=== PATIENT | female | born 1955 | race Caucasian/White ===

== ENCOUNTER 2018-11-16 09:52 | Observation (INO) | payer MEDICAID ==
--- NOTE | 2018-11-16 10:38 | Emergency Department Record ---
History of Present Illness - General Chief complaint: Weakness Stated complaint: MUSCLE WEAKNESS,HEAD & MOUTH SORES Time Seen by Provider: 11/16/18 10:17 Source: Patient Mode of Arrival: Ambulatory Limitations: No limitations - History of Present Illness Initial comments: The patient is here due to not feeling well for 6 months. She has had intermittent scalp and mouth ulcers, fleeting pain in her hands and feet and a 30 lb weight gain. She denies any RUIZ, CP, SOB, AP, nausea, vomiting, or fevers. The patient has seen her PCP multiple times for it and was told it was stress. She also has seen her Dentist for it who is concerned. The patient does have an appointment with a Asset Card Clerk this week. Today what brought the patient here was worsening R scapula area pain that started this AM. She denies any cough or SOB with it and it seems to be worse with bending and twisting. MD Complaint: Generalized weakness Onset/Timin -: Month(s) - Related Data Home Medications Medication Instructions Recorded Confirmed Last Taken No Home Med [NO HOME MEDS] 11/16/18 11/16/18 Unknown Allergies Allergy/AdvReac Type Severity Reaction Status Date / Time Penicillins AdvReac NAUSEA Verified 11/16/18 10:04 Travel Screening - Travel/Exposure Within Last 30 Days Have you traveled within the last 30 days?: No Review of Systems Constitutional: Reports: Malaise. Denies: Chills, Fever Eyes: Denies: Eye discharge ENT: Denies: Congestion Respiratory: Denies: Cough, Dyspnea Cardiovascular: Denies: Arrhythmia, Chest pain Endocrine: Reports: Fatigue Gastrointestinal: Denies: Nausea Genitourinary: Denies: Dysuria Musculoskeletal: Denies: Arthralgia Skin: Denies: Bruising Past Medical History - SOCIAL HISTORY Smoking Status: Former smoker Alcohol Use: None Drug Use: None - RESPIRATORY Hx Respiratory Disorders: No - CARDIOVASCULAR Hx Cardio Disorders: No - NEURO Hx Neuro Disorders: No - GI Hx GI Disorders: No - Hx Genitourinary Disorders: No - ENDOCRINE Hx Endocrine Disorders: No - MUSCULOSKELETAL Hx Musculoskeletal Disorders: No - PSYCH Hx Psych Problems: No - HEMATOLOGY/ONCOLOGY Hx Hematology/Oncology Disorders: Yes Hx Cancer: Yes (Breast) Hx Chemotherapy: Yes (2009) Hx Radiation Therapy: Yes (2009) Family Medical History Any Significant Family History?: Yes Hx Cancer: Father *Cancer Comment: Father-Lung Hx Diabetes: Grandparents Physical Exam - General General Appearance: Alert, Oriented x3, Cooperative, No acute distress - Head Head exam: Atraumatic, Normocephalic, Normal inspection - Eye Eye exam: Normal appearance, PERRL, EOMI - ENT Throat exam: negative: Normal inspection (There are superficial ulcers on her soft palate) - Neck Neck exam: Normal inspection, Full ROM. negative: Lymphadenopathy, Meningismus , Tenderness - Respiratory Respiratory exam: Normal lung sounds bilaterally. negative: Respiratory distress - Cardiovascular Cardiovascular Exam: Regular rate, Normal rhythm, Normal heart sounds - GI/Abdominal GI/Abdominal exam: Soft, Normal bowel sounds. negative: Tenderness - Extremities Extremities exam: Normal inspection, Full ROM, Normal capillary refill, Other ( DP pulses 2+ bilaterally.). negative: Tenderness - Back Back exam: Reports: Normal inspection, Paraspinal tenderness (There is R Rhomboid tenderness to palpation.) - Neurological Neurological exam: Alert, Normal gait, Oriented X3. negative: Abnormal gait, Altered, Motor sensory deficit Course Vital Signs 11/16/18 10:01 Temperature 98.5 F Pulse Rate 94 H Respiratory 20 Rate Blood Pressure 131/74 Pulse Ox 96 - Reevaluation(s) Reevaluation #1: The patient is doing very well at this time but is still having the reproducible scapula pain. I did discuss the nonspecific ST changes on the EKG and the elevatedd CK-MB with the normal Trop. Because of her constellation of symptoms I did recommend a short stay admission for repeat lab testing and a cardiac echo tomorrow with a Cardiology consult. The patient did agree to the plan. I then did discuss the case with Mary (CUSTOMER SUCCESS DIRECTOR) who does accept the admission for Dr. Phillips. 11/16/18 12:00 Medical Decision Making - Data Complexity MDM Data: Labs Ordered and/or Reviewed, X-Ray Ordered and/or Reviewed, EKG Ordered and/or Reviewed - Lab Data Result diagrams: 11/16/18 10:35 11/16/18 10:35 - EKG Data -: EKG Interpreted by Me (NSR at 81, nonspecific ST changes inferior and lateral. Etiology ?.) - Radiology Data Radiology results: Report reviewed (CXR: Neg.) Disposition Disposition: Admit Clinical Impression: Chest pain, atypical Disposition: Still a Patient at [facility] Decision to Admit: Admit from ER Decision to Admit Date: 11/16/18 Decision to Admit Time: 12:03 Accepting Physician: Jaqcueline Time Discussed w/Accepting Physician: 12:03 Condition: (2) Stable Forms: Patient Portal Access Time of Disposition: 12:03 Quality - Quality Measures Quality Measures: N/A - Blood Pressure Screening View Details: Yes Does Patient Have Any of the Following: No Blood Pressure Classification: Pre-Hypertensive BP Reading Systolic Measurement: 131 Diastolic Measurement: 74 Screening for High Blood Pressure: < Pre-Hypertensive BP, F/U Documented > [ [id number]] Pre-Hypertensive Follow-up Interventions: Referral to alternative/primary care provider.
[2018-11-16 10:42] LABS: HEMATOCRIT 40.6 % (35.0-47.0); HEMOGLOBIN 13.2 gm/dl (11.6-16.0); MEAN CELL VOLUME 93.5 fl (81-97); MEAN CORPUSCULAR HEMOGLOBIN 30.4 pg (27-33); MEAN CORPUSCULAR HGB CONC 32.5 g/dl (32-36); MEAN PLATELET VOLUME 9.4 fl (7.4-10.4); PLATELET COUNT 293 K/uL (130-400); RED BLOOD COUNT 4.34 M/uL (3.80-5.40); RED CELL DISTRIBUTION WIDTH 13.8 % (11.5-14.5)
[2018-11-16 10:54] LABS: BLOOD UREA NITROGEN 14 mg/dL (8-23); CREATININE 0.7 mg/dL (0.5-0.9); EST GLOMERULAR FILTRATION RATE > 60 mL/min
[2018-11-16 10:55] LABS: TOTAL PROTEIN 7.2 g/dL (6.6-8.7)
[2018-11-16 10:57] LABS: GLUCOSE,RANDOM 97 mg/dL (74-109)
[2018-11-16 10:59] LABS: ALT/SGPT 18 U/L (<33); AST/SGOT 24 U/L (10.0-35.0)
[2018-11-16 11:00] LABS: ALB/GLOB RATIO 1.4 (1.1-1.8); ALBUMIN 4.2 g/dL (4.0-5.0); ALKALINE PHOSPHATASE 98 U/L (45-87); PLATELET ESTIMATE NORMAL (NORMAL)
[2018-11-16 11:07] LABS: CREATINE PHOSPHOKINASE 116 U/L (26-192)
[2018-11-16 11:08] LABS: CKMB 6.3 ng/mL (<3.77)
[2018-11-16 11:16] LABS: ERYTHROCYTE SEDIMENTATION RATE 30 mm/hr (0-30)
[2018-11-16] MEDS ORDERED: ACETAMINOPHEN 325 MG TAB PO ONE (11:50)
[2018-11-16] MEDS ORDERED: KETOROLAC 30 MG/ML VIAL IVP ONE (11:50)
[2018-11-16] MEDS ORDERED: MAGNESIUM HYDROXIDE/AL HYDROX 30 ML, LIDOCAINE VISC 2% 15ML 15 ML PO ONE ×2 (12:17)
[2018-11-16] MEDS ORDERED: ACETAMINOPHEN 325 MG TAB PO PRN (12:54)
[2018-11-16] MEDS ORDERED: KETOROLAC 30 MG/ML VIAL IVP PRN (12:54)
--- NOTE | 2018-11-16 14:48 | History & Physical ---
History of Present Illness - Date of Service Date of Service for History & Physical: 11/17/18 - History of Present Illness Admitting Diagnosis: 1. Atypical chest pain History of Present Illness: 62 yo female admitted for right shoulder pain x 1 day(reproducible with movement ) , transient rash on head and torso x 6 months (has derm appt 11/17/18, 1pm), and oral lesions that have been assessed by her dentist (instructed to see oral surgeon for biopsy). PMH smoker (recently quit a few months ago). PCP dx rash as "anxious respons" and recommended pt start restrictive diet and see derm. 11/16/18 - Pt presented to ER with her and daughter for right shoulder pain x 1 day and other chronic issues that have not been aggressively addressed in the outpt setting. EKG was read as having ST depression changes, trop <0.010 but elevated CKMB 6.3 , CK 116 CXR negative WBC 7, Hgb 13.2, Hct 40.6, Plt 293 Na 139, K 4.1, Cl 101, CO2 23, BUN 14, Cr 0.7, GRF>60, glucose 97, LFTs normal CRP 08, TSH 1.41 Admission DX atypical CP 11/16/18 Pt resting comfortably in bed, denies any CP or shoulder pain. Rash is noted to upper chest, small circular open areas of skin and excoriation stewart noted, mild erythema, no odor or discharge noted. Lesions noted to scalp, intact, no discharge or odor. Oral lesions are most concerning, middle of tongue and soft palate noted with no surrounding erythema, no discharge or edema. pt is able to talk with no difficulty. Has seen her dentist and was referred to oral surgeon and has an appt 11/20/18. Culture obtained to r/o atyptical infection or fungus. Harrington lamp did not identify torso rash as potential for fungus. Cervical lympandenopathy noted, CT soft tissue ordered and results are positive for maria c ant cervical and subclavian nodes, most 1cm and greater. CHERYL consolidation noted 2.2X2.2cm, no etiology noted. POC monitor trop, CKMB, tele and symptoms. Magic mouth wash and vistaril ordered for symptoms mgt. PCP changing to [facility] (Mary Hong PURCHASING CLERK) Argelia Presley (derm, has not established yet) Travel Screening - Travel/Exposure Within Last 30 Days Have you traveled within the last 30 days?: No - Travel/Exposure Within Last Year Have you traveled outside the [place] in the last year?: No - Additonal Travel Details Have you been exposed to anyone with a communicable illness?: No Review of Systems Constitutional: Reports: Malaise. Denies: Chills, Fever Eyes: Denies: Eye discharge ENT: Denies: Congestion Respiratory: Denies: Cough, Dyspnea Cardiovascular: Denies: Arrhythmia, Chest pain Endocrine: Reports: Fatigue Gastrointestinal: Denies: Nausea Genitourinary: Denies: Dysuria Musculoskeletal: Denies: Arthralgia Skin: Denies: Bruising Past Medical History - SOCIAL HISTORY Smoking Status: Former smoker Alcohol Use: None Drug Use: None - RESPIRATORY Hx Respiratory Disorders: No - CARDIOVASCULAR Hx Cardio Disorders: No - NEURO Hx Neuro Disorders: No - GI Hx GI Disorders: No - Hx Genitourinary Disorders: No - ENDOCRINE Hx Endocrine Disorders: No - MUSCULOSKELETAL Hx Musculoskeletal Disorders: No - PSYCH Hx Psych Problems: No - HEMATOLOGY/ONCOLOGY Hx Hematology/Oncology Disorders: Yes Hx Cancer: Yes (Breast) Hx Chemotherapy: Yes (2009) Hx Radiation Therapy: Yes (2009) Family Medical History Any Significant Family History?: Yes Hx Cancer: Father, Mother *Cancer Comment: Father-Lung Hx Diabetes: Grandparents H&P Meds/Allergies - Allergies Allergies: Allergies Allergy/AdvReac Type Severity Reaction Status Date / Time Penicillins AdvReac NAUSEA Verified 11/16/18 10:04 - Home Medications Home Medications Medication Instructions Recorded Confirmed Last Taken No Home Med [NO HOME MEDS] 11/16/18 11/16/18 Unknown - Active Medications Active Medications: Current Medications Acetaminophen (Tylenol 325mg) 650 mg PO Q6H PRN PRN Reason: PAIN - MILD(1-4)/FEVER Aspirin (Ecotrin (Ec)) 325 mg PO DAILY MICHAEL Ketorolac Tromethamine (Toradol) 15 mg IVP Q8H PRN PRN Reason: PAIN - MILD (1-4) Physical Exam - Vital Signs Vital Signs: Vital Signs - Last 24 Hrs Temp Pulse Pulse Resp BP BP Pulse Ox 11/16/18 12:55 97.5 F L 90 18 117/83 95 11/16/18 10:01 98.5 F 94 H 20 131/74 96 - General General Appearance: Alert, Oriented x3, Cooperative, No acute distress Limitations: No limitations - Head Head exam: Atraumatic, Normocephalic Head exam detail: Other (lesions on scalp) - Eye Eye exam: Normal appearance, PERRL, EOMI - ENT Mouth exam: Other (lesion on tongue and soft palate). negative: Tongue normal Throat exam: negative: Normal inspection (There are superficial ulcers on her soft palate) - Neck Neck exam: Normal inspection, Full ROM. negative: Lymphadenopathy, Meningismus , Tenderness - Respiratory Respiratory exam: Normal lung sounds bilaterally. negative: Respiratory distress - Cardiovascular Cardiovascular Exam: Regular rate, Normal rhythm, Normal heart sounds Peripheral Pulses: 3+: Radial (R), Radial (L), Dorsalis Pedis (R), Dorsalis Pedis (L) - GI/Abdominal GI/Abdominal exam: Soft, Normal bowel sounds. negative: Tenderness - Rectal Rectal exam: Deferred - exam: Deferred - Extremities Extremities exam: Normal inspection, Full ROM, Normal capillary refill, Other ( DP pulses 2+ bilaterally.). negative: Tenderness - Back Back exam: Reports: Normal inspection. Denies: Paraspinal tenderness - Neurological Neurological exam: Alert, Normal gait, Oriented X3. negative: Abnormal gait, Altered, Motor sensory deficit - Psychiatric Psychiatric exam: Normal affect, Normal mood - Skin Skin exam: Dry, Rash, Warm Type of lesion: Rash Distribution of rash: Chest, Head Description of rash: Erythematous, Urticarial Results - Labs Result Diagrams: 11/16/18 10:35 11/16/18 10:35 Labs Last 24 Hours: Laboratory Results - last 24 hr 11/16/18 11/16/18 11/16/18 10:35 10:35 10:35 WBC 7.0 RBC 4.34 Hgb 13.2 Hct 40.6 MCV 93.5 MCH 30.4 MCHC 32.5 RDW 13.8 Plt Count 293 MPV 9.4 Neutrophils % 82.0 H Band Neutrophils % 3.0 Eosinophils % Not Reportable Basophils % Not Reportable Lymphocytes 9.0 L Monocytes 6.0 Platelet Estimate Normal RBC Morphology Normal ESR 30 Sodium 139 Potassium 4.1 Chloride 101 Carbon Dioxide 23.0 Anion Gap 15.0 BUN 14 Creatinine 0.7 Estimated GFR > 60 Random Glucose 97 Calcium 9.2 Total Bilirubin 0.60 AST 24 ALT 18 Alkaline Phosphatase 98 H Creatine Kinase CK-MB (CK-2) CK-MB (CK-2) Rel Index Troponin T C-Reactive Protein 0.80 H Total Protein 7.2 Albumin 4.2 Globulin 3.0 Albumin/Globulin Ratio 1.4 TSH 1.41 11/16/18 11/16/18 10:35 10:35 WBC RBC Hgb Hct MCV MCH MCHC RDW Plt Count MPV Neutrophils % Band Neutrophils % Eosinophils % Basophils % Lymphocytes Monocytes Platelet Estimate RBC Morphology ESR Sodium Potassium Chloride Carbon Dioxide Anion Gap BUN Creatinine Estimated GFR Random Glucose Calcium Total Bilirubin AST ALT Alkaline Phosphatase Creatine Kinase 116 116 CK-MB (CK-2) 6.3 H CK-MB (CK-2) Rel Index 5.40 H Troponin T < 0.010 C-Reactive Protein Total Protein Albumin Globulin Albumin/Globulin Ratio TSH - Imaging and Cardiology Chest x-ray Status: Report reviewed VTE H&P Assessment - Risk for VTE Risk for VTE: Yes Risk Level: Moderate Risk Assessment Date: 11/17/18 Risk Assessment Time: 14:26 VTE Orders Placed or Will Be Placed: No VTE Reason for No Prophylaxis: Not Indicated (pt d/cing today) Plan - Detailed Diagnosis and Plan (1) Chest pain, atypical Current Visit: Yes Status: Acute Base Code: R07.89 - OTHER CHEST PAIN Comment: 11/16/18 -resolved right shoulder pain before arrival to the floor -denies CP, trop neg, CKMB slightly elevated -EKG repeated MED/SURG, no acute process noted -tele NSR, echo and cardiology consult pending -pt denies epigastric, RUQ abd pain, or h/o gallbladder issues (2) Rash and nonspecific skin eruption Current Visit: Yes Status: Acute Base Code: R21 - RASH AND OTHER NONSPECIFIC SKIN ERUPTION Comment: 11/16/18 -rash noted to chest and scalp -pt placed in isolation r/t unknown rash, has derm OV tomorrow but unlikely she will be d/c'd in time as card consult is pending (3) Oral lesion Current Visit: Yes Status: Acute Base Code: K13.70 - UNSPECIFIED LESIONS OF ORAL MUCOSA Comment: 11/16/18 -wound culture obtained -lesion is asymetrical, intact, no discharge, no erythyema or edema noted -pt able to talk, swallow, and move tongue with little difficulty -harrington lamp does not show illumination -oral surgeon consult 11/20/18 already scheduled outpt (4) Full code status Current Visit: Yes Status: Acute Base Code: Z78.9 - OTHER SPECIFIED HEALTH STATUS Comment: 11/16/18 full code
[2018-11-16 17:19] LABS: CKMB 4.7 ng/mL (<3.77)
[2018-11-16] MEDS ORDERED: HYDROXYZINE PAMOATE 25 MG CAPSULE PO PRN (18:01)
[2018-11-16] MEDS ORDERED: NYSTATIN 100,000 UNITS/ML 5ML CUP PO PRN (18:06)
[2018-11-16] MEDS ORDERED: LIDOCAINE VISC 2% 15ML SOLUTION MM PRN (18:07)
[2018-11-16] MEDS ORDERED: AL HYDROX/MAG HYDROX 30ML UD PO PRN (18:08)
[2018-11-16] MEDS: ASPIRIN 325 MG TAB ENTERIC-COATED PO SCH (20:02)
[2018-11-17 01:34] LABS: CKMB 4.3 ng/mL (<3.77)
--- NOTE | 2018-11-17 07:33 | RADIOLOGY REPORT ---
EXAM: CHEST, TWO VIEWS HISTORY: RIGHT CHEST AND SCAPULAR REGION PAIN, REMOTE HISTORY OF BREAST CANCER. TECHNIQUE: Two views of the chest were obtained. Comparison: None. FINDINGS: The cardiac silhouette is within normal size limits. No definite focal pulmonary consolidation. No visible pleural effusion or pneumothorax. Appear consistent with prior left mastectomy. No definite acute osseous abnormalities are seen. IMPRESSION: NO ACUTE LUNG FINDINGS. JOB NUMBER: [id number] MTDD
--- NOTE | 2018-11-17 07:44 | CT SCAN REPORT ---
EXAM: CT SCAN OF THE NECK WITH CONTRAST HISTORY: SWOLLEN LYMPH NODES IN THE NECK. PREVIOUS HISTORY OF LEFT BREAST CANCER IN 2010 STATUS POST LUMPECTOMY, CHEMOTHERAPY AND RADIATION THERAPY. BLISTERS IN THE MOUTH. TECHNIQUE: Standard CT imaging of the neck was performed in the axial plane with contrast. 100 ml of Omnipaque 300 were administered. Additional coronal and sagittal reformatted images were also performed. Comparison: None. FINDINGS: The visualized intracranial structures are normal. The orbits, sinuses, and mastoids are normal. Lucent areas along the occiput are nonspecific, but suggestive of venous lakes. Degenerative changes are present within the cervical spine. The nasopharynx, oropharynx, hypopharynx, and larynx appear normal. The major salivary glands are normal in appearance and symmetric bilaterally. There are scattered lymph nodes within the anterior and posterior cervical chains bilaterally. These are not enlarged by imaging criteria. The largest of these is located within the left posterior cervical chain and measures 8 mm in short axis. There are mildly enlarged lymph nodes within the supraclavicular regions bilaterally. The largest on the right measures 1 x 1.3 cm. The largest on the left measures 1 x 1.3 cm. Multiple smaller supraclavicular lymph nodes are also present. There is an enlarged lymph node within the superior mediastinum just above the level of the aortic arch and anterior to the left subclavian artery origin. This lymph node measures 1.4 x 1.6 cm. There are multiple other conspicuous lymph nodes within the superior mediastinum. The next largest is located within the prevascular space and measures 1 x 1.2 cm. There are nonenlarged lymph nodes along the left lateral chest wall. Post surgical changes are present within the left axilla consistent with previous lymph node dissection. The right axilla appears normal. There is focal wedge shaped consolidation involving the posterolateral aspect of the left upper lobe measuring 2.2 x 2.2 cm. IMPRESSION: 1. THERE ARE MILDLY ENLARGED LYMPH NODES WITHIN THE SUPRACLAVICULAR REGIONS AND SUPERIOR MEDIASTINUM WITH MEASUREMENTS OF THE LARGEST LYMPH NODES REPORTED ABOVE. THERE ARE MULTIPLE NONENLARGED, BUT MILDLY CONSPICUOUS LYMPH NODES WITHIN THE NECK BILATERALLY. THE ETIOLOGY OF THE PATIENT'S LYMPHADENOPATHY IS UNCERTAIN. 2. FOCAL WEDGE SHAPED AREA OF CONSOLIDATION WITHIN THE POSTEROLATERAL ASPECT OF THE LEFT UPPER LOBE MEASURING 2.2 X 2.2 CM. 3. ADDITIONAL CHRONIC FINDINGS DETAILED ABOVE. JOB NUMBER: [id number] [facility]
[2018-11-17 08:11] LABS: HEP A AB IGM Nonreactive (Nonreactive); HEPATITIS B CORE ANTIBODY,IGM Nonreactive (Nonreactive); HEPATITIS B SURFACE ANTIGEN Nonreactive (Nonreactive); HEPATITIS C VIRUS ANTIBODY Nonreactive (Nonreactive)
[2018-11-17] MEDS: ASPIRIN 325 MG TAB ENTERIC-COATED PO SCH (09:30)
[2018-11-17] MEDS ORDERED: MAGNESIUM HYDROXIDE PO PRN ×3 (10:39)
[2018-11-17] MEDS ORDERED: AL HYDROX PO PRN ×3 (10:39)
[2018-11-17] MEDS ORDERED: NYSTATIN PO PRN ×3 (10:39)
[2018-11-17] MEDS ORDERED: [UNRECOGNIZED DRUG - OTHER] PO PRN ×3 (10:39)
--- NOTE | 2018-11-17 14:42 | Discharge Summary ---
Providers Discharge Summary Date: 11/17/18 Date of admission: 11/16/18 12:50 Expected Date of Discharge: 11/17/18 Attending physician: DENISE RAY Consults: Consult Orders 11/16/18 18:02 Consult - Cardiology NOW Consulting Provider: LOBO NIÑO Physician Instructions: Reason For Exam: elevatd ckmb, ST depression Does pt have current independent sales representative?: Not Established Physical Exam - Vital Signs Vital Signs: Vital Signs - Last 24 Hrs Temp Pulse Resp BP BP Pulse Ox 11/17/18 10:00 98.6 F 78 20 110/84 11/17/18 09:46 98.1 F 126/61 11/17/18 09:00 20 11/17/18 06:00 98.1 F 78 16 126/61 97 11/16/18 22:00 97.9 F 75 16 107/60 92 L 11/16/18 21:00 16 11/16/18 18:54 97.3 F L 88 18 93/59 96 11/16/18 14:54 98.1 F 73 16 88/57 97 - General General Appearance: Alert, Oriented x3, Cooperative, No acute distress Limitations: No limitations - Head Head exam: Atraumatic, Normocephalic Head exam detail: Other (lesions on scalp) - Eye Eye exam: Normal appearance, PERRL, EOMI - ENT Mouth exam: Other (lesion on tongue and soft palate). negative: Tongue normal Throat exam: negative: Normal inspection (There are superficial ulcers on her soft palate) - Neck Neck exam: Normal inspection, Full ROM. negative: Lymphadenopathy, Meningismus , Tenderness - Respiratory Respiratory exam: Normal lung sounds bilaterally. negative: Respiratory distress - Cardiovascular Cardiovascular Exam: Regular rate, Normal rhythm, Normal heart sounds Peripheral Pulses: 3+: Radial (R), Radial (L), Dorsalis Pedis (R), Dorsalis Pedis (L) - GI/Abdominal GI/Abdominal exam: Soft, Normal bowel sounds. negative: Tenderness - Rectal Rectal exam: Deferred - exam: Deferred - Extremities Extremities exam: Normal inspection, Full ROM, Normal capillary refill, Other ( DP pulses 2+ bilaterally.). negative: Tenderness - Back Back exam: Reports: Normal inspection. Denies: Paraspinal tenderness - Neurological Neurological exam: Alert, Normal gait, Oriented X3. negative: Abnormal gait, Altered, Motor sensory deficit - Psychiatric Psychiatric exam: Normal affect, Normal mood - Skin Skin exam: Dry, Rash, Warm Type of lesion: Rash Distribution of rash: Chest, Head Description of rash: Erythematous, Urticarial Hospitalization - Hospitalization Admission Diagnosis: 1. Atypical chest pain - Problem List/Discharge Diagnosis (1) Chest pain, atypical Current Visit: Yes Status: Acute Base Code: R07.89 - OTHER CHEST PAIN Comment: 11/16/18 -resolved right shoulder pain before arrival to the floor -denies CP, trop neg, CKMB slightly elevated -EKG repeated MED/SURG, no acute process noted -tele NSR, echo and cardiology consult pending -pt denies epigastric, RUQ abd pain, or h/o gallbladder issues 11/17/18 -cardiology consult completed, pt to f/u outpt with stress test lexiscan -denies CP (2) Rash and nonspecific skin eruption Current Visit: Yes Status: Acute Base Code: R21 - RASH AND OTHER NONSPECIFIC SKIN ERUPTION Comment: 11/16/18 -rash noted to chest and scalp -pt placed in isolation r/t unknown rash, has derm OV tomorrow but unlikely she will be d/c'd in time as card consult is pending 11/17/18 -pt called derm and rescheduled for later this month (3) Oral lesion Current Visit: Yes Status: Acute Base Code: K13.70 - UNSPECIFIED LESIONS OF ORAL MUCOSA Comment: 11/16/18 -wound culture obtained -lesion is asymetrical, intact, no discharge, no erythyema or edema noted -pt able to talk, swallow, and move tongue with little difficulty -harrington lamp does not show illumination -oral surgeon consult 11/20/18 already scheduled outpt 11/17/18 -continue with oral surgeon consult -magic mouth wash for home use to be given (4) Full code status Current Visit: Yes Status: Acute Base Code: Z78.9 - OTHER SPECIFIED HEALTH STATUS Comment: 11/17/18 full code - Hospitalization Course Disposition: Home, Self-Care Hospital Course: 62 yo female admitted for right shoulder pain x 1 day(reproducible with movement ) , transient rash on head and torso x 6 months (has derm appt 11/17/18, 1pm), and oral lesions that have been assessed by her dentist (instructed to see oral surgeon for biopsy). PMH smoker (recently quit a few months ago). PCP dx rash as "anxious respons" and recommended pt start restrictive diet and see derm. 11/16/18 - Pt presented to ER with her and daughter for right shoulder pain x 1 day and other chronic issues that have not been aggressively addressed in the outpt setting. EKG was read as having ST depression changes, trop <0.010 but elevated CKMB 6.3 , CK 116 CXR negative WBC 7, Hgb 13.2, Hct 40.6, Plt 293 Na 139, K 4.1, Cl 101, CO2 23, BUN 14, Cr 0.7, GRF>60, glucose 97, LFTs normal CRP 08, TSH 1.41 Admission DX atypical CP 11/16/18 Pt resting comfortably in bed, denies any CP or shoulder pain. Rash is noted to upper chest, small circular open areas of skin and excoriation stewart noted, mild erythema, no odor or discharge noted. Lesions noted to scalp, intact, no discharge or odor. Oral lesions are most concerning, middle of tongue and soft palate noted with no surrounding erythema, no discharge or edema. pt is able to talk with no difficulty. Has seen her dentist and was referred to oral surgeon and has an appt 11/20/18. Culture obtained to r/o atyptical infection or fungus. Harrington lamp did not identify torso rash as potential for fungus. Cervical lympandenopathy noted, CT soft tissue ordered and results are positive for maria c ant cervical and subclavian nodes, most 1cm and greater. CHERYL consolidation noted 2.2X2.2cm, no etiology noted. POC monitor trop, CKMB, tele and symptoms. Magic mouth wash and vistaril ordered for symptoms mgt. PCP changing to [facility] (Mary Hong BUSINESS OFFICE REPRESENTATIVE) Argelia Presley (derm, has not established yet) Procedures: Imaging and X-Rays 11/16/18 10:27 CHEST 2 VIEWS [RAD] Stat 11/16/18 16:18 SOFT TISSUE NECK W CONTRAST [CT] Stat Cardiology Procedures 11/16/18 12:54 [employer] .Continuous EKG QDX2@0600 Echo W/CF & Cardiac Doppler NOW 11/16/18 16:00 EKG ONCE Abnormal Labs: Abnormal Lab Results 11/16/18 11/16/18 11/16/18 Range/Units 10:35 10:35 10:35 Neutrophils % 82.0 H (47-80) % Lymphocytes 9.0 L (16-45) % Alkaline Phosphatase 98 H (45-87) U/L CK-MB (CK-2) 6.3 H (<3.77) ng/mL CK-MB (CK-2) Rel Index 5.40 H (0-4) % C-Reactive Protein 0.80 H (<0.5) mg/dL 11/16/18 11/17/18 Range/Units 16:55 00:55 Neutrophils % (47-80) % Lymphocytes (16-45) % Alkaline Phosphatase (45-87) U/L CK-MB (CK-2) 4.7 H 4.3 H (<3.77) ng/mL CK-MB (CK-2) Rel Index (0-4) % C-Reactive Protein (<0.5) mg/dL Condition at Discharge: (2) Stable Discharge Diagnosis: Atypical chest pain, oral lesion with distal lymphandenopathy, rash Discharge Medications - Discharge Medications Prescriptions: Hydroxyzine Pamoate [Vistaril] 25 mg PO QHS PRN #30 capsule PRN Reason: Itching Home Medications: Ambulatory Orders Acetaminophen [Tylenol 325Mg] 650 mg PO Q6H PRN tablet 11/17/18 [Last Taken Unknown] Hydroxyzine Pamoate [Vistaril] 25 mg PO QHS PRN #30 capsule 11/17/18 [Last Taken Unknown] Discharge Plan - Discharge Instructions Activity at Discharge: Increase Activity as Tolerated Diet at Discharge: Regular Diet Additional Instructions: Appointment to establish primary care with Mary Hong at [facility] on Sat11/26/18 at 10:40AM. Please bring completed new patient paperwork to your first visit. Keep your Oral Surgeon appt 11/20/18 for consultation on oral lesions. Will have you complete stress test and chest CT outpt. Go to ER for sudden onset of chest pain, shortness of breath, difficulty breathing, unable to swallow or eat related to oral lesions. Quality Measures - Quality Measures Quality Measures: Documentation of Current Medications in Medical Record, Screening for High Blood Pressure and F/U Documented - Current Medications Quality Measure: Measure #130: Documentation of Current Medications Documentation of Current Medications: <Current Medications Documented/Reviewed> [G8427] - Blood Pressure Screening Quality Measure: Screening for High Blood Pressure and Follow-Up Documented Does Patient Have Any of the Following: No Blood Pressure Classification: Pre-Hypertensive BP Reading Systolic Measurement: 126 Diastolic Measurement: 61 Screening for High Blood Pressure: < Pre-Hypertensive BP, F/U Documented > [ G8950] Pre-Hypertensive Follow-up Interventions: Referral to alternative/primary care provider. - Elder Abuse Suspicion Index EASI Reference Information: Debra HORTON, Tanja C, Karina Bowling, Jorje Díaz.Development and validation of a tool to assist physicians identification of elder abuse: The Elder Abuse Suspicion Index (EASI ). Journal of Elder Abuse and Neglect, 2008; 20 (3): 276-300.
--- NOTE | 2018-11-18 19:25 | Cardiology Consult ---
DATE OF CONSULTATION: 11/17/2018 REASON FOR CONSULT: ELEVATED CK-MB. HISTORY OF PRESENT ILLNESS: This is a very pleasant 62-year-old female with no previous cardiac history. The patient presented to the Emergency Department due to right shoulder pain and transient rash on head and torso for six months and oral lesions that have been intermittent and she is scheduled for biopsy by oral surgeon. The patient does have a previous smoking history and quit months ago. The patient denies any chest pain, palpitations, lightheadedness, or dizziness. She orthopnea or PND. She denies any lower extremity swelling. She has not had any syncopal episodes. EKG on admission demonstrated sinus rhythm with no acute changes. Troponins were negative x3. The patient's preliminary echocardiogram demonstrated preserved LVEF with no significant valvular abnormalities. REVIEW OF SYSTEMS: CONSTITUTIONAL; Positive for malaise. Negative for chills and fevers, recent illness, or significant weight change. HEENT; Denies visual changes, denies hearing changes, denies difficulty swallowing or congestion. RESPIRATORY; Denies cough or increased dyspnea. CARDIOVASCULAR; Denies palpitations or chest pain. ENDOCRINE; Positive for fatigue. GASTROINTESTINAL; Negative for nausea, abdominal pain, or melena. GENITOURINARY; Denies dysuria. MUSCULOSKELETAL; Denies arthralgia. Positive shoulder pain. SKIN; Denies easy bruising. Positive for rash. PAST MEDICAL HISTORY: She has a history of breast cancer. SOCIAL HISTORY: Previous smoker. Denies alcohol or illicit drug use. FAMILY MEDICAL HISTORY: Mother, father with cancer. Grandparents with diabetes. ALLERGIES: PENICILLIN. HOME MEDICATIONS: None. CURRENT MEDICATIONS: Tylenol 325 mg p.r.n. pain Aspirin 325 mg p.o. every day Toradol 50 mg IVP every 8 hours p.r.n. PHYSICAL EXAMINATION: VITAL SIGNS: Blood pressure 117/83. Pulse 90. Respirations 18. O2 saturation 95 % on room air. She is afebrile. HEENT: Normocephalic, atraumatic. Extraocular movements are intact. Pupils are equal and round. NECK: Supple without lymphadenopathy, thyromegaly, or bruits. CARDIAC: Regular rate and rhythm. No significant murmur was appreciated. LUNGS: Clear to auscultation in all lung roberts without rales, rhonchi, or wheeze. ABDOMEN: Soft, nontender. Bowel sounds present in all four quadrants. EXTREMITIES: No edema. 2+ pulses bilaterally. SKIN: Warm and dry. DIAGNOSTIC STUDIES: Laboratories: WBC 7.0. Hemoglobin 13.2. Hematocrit 40.6. Platelet count 293. Sodium 139. Potassium 4.1. Chloride 101. CO2 23. BUN 14. Creatinine 0.7. Glucose 97. TSH 1.41. CPK-MB 6.3. C-reactive protein 0.8. Troponins negative x3. EKG: EKG again demonstrated normal sinus rhythm with nonspecific ST/T changes. ASSESSMENT/PLAN: MILDLY ELEVATED CK-MB: Patient denies any chest pain. Troponins were negative x3. Echocardiogram demonstrated preserved LVEF without any significant valvular disease. Patient having recurrent scapular pain. Will plan outpatient stress test. The patient was instructed to contact our office if she should have any further cardiac concerns. Thank you for the opportunity to participate in this patient's care. JOB NUMBER: [id number] MTDD
== END 2018-11-17 15:39 | disposition home or self-care (01) ==
LOC: ER 09:52 → MEDSURG 12:50
PROVIDERS: ADMIT Internal Medicine; ATTEND Internal Medicine
DX: R07.89 Other chest pain (principal); R21 Rash and other nonspecific skin eruption; K13.70 Unspecified lesions of oral mucosa; M25.511 Pain in right shoulder; Z85.3 Personal history of malignant neoplasm of breast; Z87.891 Personal history of nicotine dependence
CPT/HCPCS: 99285 ×2; 96374; 82550; 86803; 85651; 86140; 82553 ×2; 80053; 84443; 86705; 87340; 84484 ×2; 85027; 71046; 70491; 93005 ×2; 93010; 93306; G0378 ×2; Q9967; J1885; 99220

== ENCOUNTER 2019-01-02 07:21 | Day surgery (SDC) | payer MEDICAID ==
[2019-01-02] MEDS ORDERED: PROPOFOL 10 MG/ML VIAL IV ONE (07:22)
[2019-01-02] MEDS ORDERED: LIDOCAINE 2% MDV (20MG/ML) 20ML VIAL IV ONE (07:22)
--- NOTE | 2019-01-05 08:20 | Operative Note ---
DATE OF SURGERY: 01/02/2019 SURGEON: Noreen Valladares MD OPERATION: COLONOSCOPY. INDICATIONS: This is a 63-year-old female with history of colon polyps who presented for surveillance colonoscopy. POSTOPERATIVE DIAGNOSES: 1. Normal colonic and terminal ileal mucosa with no neoplasm or ulcerative lesions. 2. Grade 2 internal hemorrhoids. ANESTHESIA: Sedation is per Anesthesia. Pulse oximetry was monitored throughout the procedure to maintain O2 saturation of 90% or greater. Supplemental oxygen was administered via nasal cannula. Cardiac and vital signs were monitored throughout the duration of the procedure, and they were stable. The procedure of colonoscopy and risks and alternatives of the procedure, including the risk of bleeding and perforation, among others, were explained to the patient who voiced understanding and agreed to have the procedure done. Physical examination was performed, and the patient was found stable for sedation. PROCEDURE: The patient was placed in the left lateral position. Sedation was initiated. A digital rectal exam was performed and showed some mild external hemorrhoids with no palpable rectal masses. An Olympus PCF-180AL colonoscope was then inserted into the rectum under direct visualization. It was advanced to the cecum without difficulty. The ileocecal valve and appendiceal orifice were identified and photographed. The colonic mucosa was carefully examined upon introduction of the colonoscope. There were no lesions noted. The ileocecal valve was intubated and terminal ileal mucosa was inspected for about 10 cm and it appeared normal. The colonoscope was then withdrawn while carefully examining the colonic mucosal surfaces. No lesions were noted. In the rectum, retroflexion was performed and grade 2 internal hemorrhoids were noted. The colonoscope was then withdrawn and the procedure was terminated. The patient tolerated the procedure well without any immediate complications. The patient remained with stable vital signs and was transferred to the recovery room. RECOMMENDATIONS: 1. The patient should be on a high-fiber diet. 2. The patient is to have a repeat colonoscopy for surveillance in 5 years. Thank you for allowing me to participate in the care of your patient. CC: ELVIRA [place]
== END 2019-01-02 09:30 | disposition home or self-care (01) ==
LOC: HOP 07:21
PROVIDERS: ATTEND Internal Medicine Gastroenterology
DX: Z12.11 Encounter for screening for malignant neoplasm of colon (principal); Z86.010 Personal history of colon polyps
CPT/HCPCS: 00812; G0105

== ENCOUNTER 2019-01-12 15:23 | Emergency (ER) | payer MEDICAID ==
[2019-01-12] MEDS ORDERED: 0.9 % SODIUM CHLORIDE 1000ML 1,000 ML IV ONE (15:37)
--- NOTE | 2019-01-12 15:40 | Emergency Department Record ---
History of Present Illness - General Chief complaint: Nausea, Vomiting, Diarrhea Stated complaint: NAUSEA,CANT EAT/DRINK Time Seen by Provider: 01/12/19 15:30 Source: Patient Mode of Arrival: Ambulatory Limitations: No limitations - History of Present Illness Initial comments: Pt with an oral lesion that is being treated beginning tomorrow at . The lesion causes pain with eating or oral fluids. Pt feels dehydrated. No fever or other new issues. Just feels she need some IV hydration before heading to tomorrow. Onset/Timin -: Days(s) Radiation: None Consistency: Constant Improves with: None Worsens with: None Associated Symptoms: Nausea/vomiting - Related Data Previous Rx's Medication Instructions Recorded Acetaminophen [Tylenol 325Mg] 650 mg PO Q6H PRN tablet 11/17/18 Magic Mouthwash 5 ml SSW Q4HR #120 ml 12/24/18 Allergies Allergy/AdvReac Type Severity Reaction Status Date / Time morphine AdvReac VOMITING Unverified 01/08/19 08:12 Travel Screening - Travel/Exposure Within Last 30 Days Have you traveled within the last 30 days?: No Review of Systems Constitutional: Denies: Chills, Fever, Weakness Eyes: Denies: Eye discharge, Photophobia ENT: Reports: As per HPI, Throat pain. Denies: Congestion, Ear pain Respiratory: Denies: Cough, Dyspnea Cardiovascular: Denies: Arrhythmia, Chest pain Endocrine: Denies: Fatigue Gastrointestinal: Denies: Abdominal pain Genitourinary: Denies: Abnormal menses Musculoskeletal: Denies: Arthralgia Skin: Denies: Bruising Neurological: Denies: Abnormal gait Psychiatric: Denies: Anxiety Past Medical History - SOCIAL HISTORY Smoking Status: Former smoker - RESPIRATORY Hx Respiratory Disorders: No - CARDIOVASCULAR Hx Cardio Disorders: No - NEURO Hx Neuro Disorders: No - GI Hx GI Disorders: Yes Hx of Polyps: Yes - Hx Genitourinary Disorders: No - ENDOCRINE Hx Endocrine Disorders: No - MUSCULOSKELETAL Hx Musculoskeletal Disorders: No - PSYCH Hx Psych Problems: No - HEMATOLOGY/ONCOLOGY Hx Hematology/Oncology Disorders: Yes Hx Cancer: Yes (Breast) Hx Chemotherapy: Yes (2009) Hx Radiation Therapy: Yes (2009) Family Medical History Any Significant Family History?: Yes Hx Cancer: Father, Mother *Cancer Comment: Father-Lung, Mother breast Hx Diabetes: Grandparents *Diabetes Comment: Fathers side had diabetes Hx HTN: Mother *HTN Comment: Mother and sister have HTN Physical Exam - General General Appearance: Alert, Oriented x3, Cooperative, Mild distress - Head Head exam: Atraumatic - Eye Eye exam: Normal appearance, PERRL - ENT ENT exam: Normal exam, Mucous membranes dry, Normal external ear exam - Neck Neck exam: Normal inspection, Full ROM. negative: Tenderness - Respiratory Respiratory exam: Normal lung sounds bilaterally. negative: Respiratory distress, Wheezes - Cardiovascular Cardiovascular Exam: negative: Regular rate, Normal rhythm, Tachycardia Peripheral Pulses: 2+: Radial (R), Radial (L) - GI/Abdominal GI/Abdominal exam: Soft, Normal bowel sounds. negative: Tenderness - Extremities Extremities exam: Normal inspection. negative: Pedal edema - Back Back exam: Reports: Normal inspection - Neurological Neurological exam: Alert, Normal gait, Oriented X3 - Psychiatric Psychiatric exam: Normal affect, Normal mood - Skin Skin exam: Normal color. negative: Rash Course Vital Signs 01/12/19 15:29 Temperature 98.1 F Pulse Rate 136 H Respiratory 20 Rate Blood Pressure 131/75 Pulse Ox 92 L Disposition Disposition: Discharge Clinical Impression: Dehydration symptoms Disposition: Home, Self-Care Condition: (1) Good Instructions: Dehydration (ED) Additional Instructions: Follow up with your physician as scheduled tomorrow. Forms: Patient Portal Access Time of Disposition: 15:54 Quality - Quality Measures Quality Measures: N/A - Blood Pressure Screening Does Patient Have Any of the Following: No Blood Pressure Classification: Pre-Hypertensive BP Reading Systolic Measurement: 131 Diastolic Measurement: 75 Screening for High Blood Pressure: < Pre-Hypertensive BP, F/U Documented > [ G8950] Pre-Hypertensive Follow-up Interventions: Follow-up with rescreen every year.
[2019-01-12 16:01] LABS: URINE APPEARANCE CLEAR; URINE BILIRUBIN SMALL (NEGATIVE); URINE BLOOD TRACE-I (NEGATIVE); URINE COLOR YELLOW; URINE GLUCOSE (UA) NEGATIVE (NEGATIVE); URINE KETONE TRACE (NEGATIVE); URINE LEUKOCYTE ESTERASE NEGATIVE (NEGATIVE); URINE NITRITE NEGATIVE (NEGATIVE); URINE PROTEIN NEGATIVE (NEGATIVE); URINE UROBILINOGEN 0.2 E.U./dL (0.20 - 1.00)
[2019-01-12 16:08] LABS: URINE EPITHELIAL CELLS 0 - 2 (FEW); URINE RBC RARE (NONE SEEN); URINE WBC NONE SEEN (0-2/hpf)
== END 2019-01-12 16:49 | disposition home or self-care (01) ==
LOC: ER 15:23
DX: E86.0 Dehydration (principal); R11.2 Nausea with vomiting, unspecified; R19.7 Diarrhea, unspecified; Z85.3 Personal history of malignant neoplasm of breast; Z87.891 Personal history of nicotine dependence
CPT/HCPCS: 81001; 96360; 99284; J7030

== ENCOUNTER 2019-05-10 15:47 | Emergency (ER) | payer MEDICAID ==
[2019-05-10] MEDS ORDERED: METHYLPREDNISOLONE PF 125MG/VIAL IVP ONE (17:19)
--- NOTE | 2019-05-10 17:27 | Emergency Department Record ---
History of Present Illness - General Chief complaint: Allergic Reaction Stated complaint: RED SWOLLEN EYE Time Seen by Provider: 05/10/19 17:05 Mode of Arrival: Ambulatory - History of Present Illness Initial Comments: blister on forehead and in the sun yesterday and blister broke this am and she has swelling of forehead and upper eyelids and no airway problems and she has a history of pemphigus and currently on prednisone 10 mg per day and whenever this happens her prednisone is increased. She is also on dapsone and IV retuxan for her pemphigus. Onset/Timin -: Hour(s) Exposure: Unknown Symptoms: Rash, Facial swelling, Other Severity: Mild Treatment Prior to Arrival: None Previous Allergy History: None - Related Data Home Medications Medication Instructions Recorded Confirmed Last Taken Betamethasone Dipropionate 1 unit TOP TID 05/10/19 05/10/19 Unknown Calcium Carbonate 1 tab PO DAILY 05/10/19 05/10/19 Unknown Cholecalciferol (Vitamin D3) 1 tab PO DAILY 05/10/19 05/10/19 Unknown [Children's Vitamin D3] Dextran 70/Hypromellose 1 drop TOP QID 05/10/19 05/10/19 Unknown [Artificial Tears] Fluticasone Propionate [Flonase] 1 spray INH BID 05/10/19 05/10/19 Unknown Hydrochlorothiazide [Hctz] 1 tab PO BID 05/10/19 05/10/19 Unknown Prednisolone Acetate/Pf 1 drop TOP BID 05/10/19 05/10/19 Unknown [Prednisolone Acet 1% Eye Drop] Prednisone [Prednisone 10Mg] 2 tab PO DAILY 05/10/19 05/10/19 Unknown Triamcinolone Acet Cream [Kenalog 1 unit TOP BID 05/10/19 05/10/19 Unknown Cream] Allergies Allergy/AdvReac Type Severity Reaction Status Date / Time morphine AdvReac VOMITING Verified 05/10/19 16:41 Travel Screening - Travel/Exposure Within Last 30 Days Have you traveled within the last 30 days?: No - Travel/Exposure Within Last Year Have you traveled outside the [place] in the last year?: No - Additonal Travel Details Have you been exposed to anyone with a communicable illness?: No - Travel Symptoms Symptom Screening: None Review of Systems Reviewed: No additional complaints except as noted below Constitutional: Reports: As per HPI. Denies: Chills, Fever, Malaise, Night sweats, Weakness, Weight change Eyes: Reports: As per HPI. Denies: Eye discharge, Eye pain, Photophobia, Vision change ENT: Reports: As per HPI. Denies: Congestion, Dental pain, Ear pain, Epistaxis, Hearing loss, Throat pain Respiratory: Reports: As per HPI. Denies: Cough, Dyspnea, Hemoptysis, Stridor, Wheezes Cardiovascular: Reports: As per HPI. Denies: Arrhythmia, Chest pain, Dyspnea on exertion, Edema, Murmurs, Orthopnea, Palpitations, Paroxysmal nocturnal dyspnea, Rheumatic Fever, Syncope Endocrine: Reports: As per HPI. Denies: Fatigue, Heat or cold intolerance, Polydipsia, Polyuria Gastrointestinal: Reports: As per HPI. Denies: Abdominal pain, Constipation, Diarrhea, Hematemesis, Hematochezia, Melena, Nausea, Vomiting Genitourinary: Reports: As per HPI. Denies: Abnormal menses, Discharge, Dyspareunia, Dysuria, Frequency, Hematuria, Incontinence, Retention, Urgency Musculoskeletal: Reports: As per HPI. Denies: Arthralgia, Back pain, Gout, Joint swelling, Myalgia, Neck pain Skin: Reports: As per HPI. Denies: Bruising, Change in color, Change in hair/nails, Lesions, Pruritus, Rash Neurological: Reports: As per HPI. Denies: Abnormal gait, Confusion, Headache, Numbness, Paresthesias, Seizure, Tingling, Tremors, Vertigo, Weakness Psychiatric: Reports: As per HPI. Denies: Anxiety, Auditory hallucinations, Depression, Homicidal thoughts, Suicidal thoughts, Visual hallucinations Hematological/Lymphatic: Reports: As per HPI. Denies: Anemia, Blood Clots, Easy bleeding, Easy bruising, Swollen glands Past Medical History - SOCIAL HISTORY Smoking Status: Former smoker Alcohol Use: None Drug Use: None - RESPIRATORY Hx Respiratory Disorders: No - CARDIOVASCULAR Hx Cardio Disorders: No - NEURO Hx Neuro Disorders: No - GI Hx GI Disorders: Yes Hx of Polyps: Yes - Hx Genitourinary Disorders: No - ENDOCRINE Hx Endocrine Disorders: No - MUSCULOSKELETAL Hx Musculoskeletal Disorders: No - PSYCH Hx Psych Problems: No - HEMATOLOGY/ONCOLOGY Hx Hematology/Oncology Disorders: Yes Hx Cancer: Yes (Breast) Hx Chemotherapy: Yes (2009) Hx Radiation Therapy: Yes (2009) Family Medical History Any Significant Family History?: Yes Hx Cancer: Father, Mother *Cancer Comment: Father-Lung, Mother breast Hx Diabetes: Grandparents *Diabetes Comment: Fathers side had diabetes Hx HTN: Mother *HTN Comment: Mother and sister have HTN Physical Exam - General General Appearance: Alert (f), Oriented x3, Cooperative, No acute distress - Head Head exam: Normal inspection - Eye Eye exam: Normal appearance, PERRL Pupils: Normal accommodation - ENT ENT exam: Normal exam, Mucous membranes moist, Normal external ear exam, Normal orophraynx, TM's normal bilaterally Ear exam: Normal external inspection. negative: External canal tenderness Nasal Exam: Normal inspection. negative: Discharge, Sinus tenderness Mouth exam: Normal external inspection, Tongue normal Teeth exam: Normal inspection. negative: Dental caries Throat exam: Normal inspection. negative: Tonsillar erythema, Tonsillar exudate - Neck Neck exam: Normal inspection, Full ROM. negative: Tenderness - Respiratory Respiratory exam: Normal lung sounds bilaterally. negative: Respiratory distress - Cardiovascular Cardiovascular Exam: Regular rate, Normal rhythm, Normal heart sounds - GI/Abdominal GI/Abdominal exam: Soft, Normal bowel sounds. negative: Tenderness - Rectal Rectal exam: Deferred - exam: Deferred - Extremities Extremities exam: Normal inspection, Full ROM, Normal capillary refill. negative: Tenderness - Back Back exam: Reports: Normal inspection, Full ROM. Denies: Muscle spasm, Rash noted, Tenderness - Neurological Neurological exam: Alert, Normal gait, Oriented X3, Reflexes normal - Psychiatric Psychiatric exam: Normal affect, Normal mood - Skin Skin exam: Dry, Intact, Normal color, Warm Course Vital Signs 05/10/19 16:32 Temperature 97.8 F Pulse Rate 85 Respiratory 18 Rate Blood Pressure 126/74 Pulse Ox 97 Medical Decision Making - Lab Data Result diagrams: 05/10/19 17:30 05/10/19 17:30 Disposition Clinical Impression: Pemphigus, Edema of face, Rash and nonspecific skin eruption, Hypokalemia, Acute and chronic dermatitis Disposition: Home, Self-Care Condition: (1) Good Instructions: Edema (ED), Dermatitis (ED), Photosensitivity (ED) Additional Instructions: follow up with Dr. Youngblood follow up with family in one week increase prednisone to 40 mg per day keep appointment with [facility] for further advise Benadryl 25 mg every 6 hours Forms: Patient Portal Access Time of Disposition: 18:24 Quality - Quality Measures Quality Measures: N/A - Blood Pressure Screening Does Patient Have Any of the Following: No, Active Dx of HTN Blood Pressure Classification: Pre-Hypertensive BP Reading Systolic Measurement: 126 Diastolic Measurement: 74 Screening for High Blood Pressure: Patient Exclusion, Hx of HTN [[id number]]
[2019-05-10 17:37] LABS: ABSOLUTE NEUTROPHIL COUNT 5.83; BASO % 0.1 % (0-6); EOS % 0.3 % (0-6); GRAN % 76.9 % (47-80); HEMATOCRIT 36.8 % (35.0-47.0); HEMOGLOBIN 11.7 gm/dl (11.6-16.0); LYMPH % 12.9 % (16-45); MEAN CELL VOLUME 106.4 fl (81-97); MEAN CORPUSCULAR HEMOGLOBIN 33.8 pg (27-33); MEAN CORPUSCULAR HGB CONC 31.8 g/dl (32-36); MEAN PLATELET VOLUME 9.2 fl (7.4-10.4); MONO % 9.8 % (0-9); PLATELET COUNT 304 K/uL (130-400); RED BLOOD COUNT 3.46 M/uL (3.80-5.40); RED CELL DISTRIBUTION WIDTH 16.4 % (11.5-14.5); WHITE BLOOD COUNT W/O DIFF 7.6 K/uL (4.2-12.2)
[2019-05-10 18:00] LABS: BLOOD UREA NITROGEN 17 mg/dL (8-23); CREATININE 0.8 mg/dL (0.5-0.9); EST GLOMERULAR FILTRATION RATE > 60 mL/min
[2019-05-10 18:03] LABS: GLUCOSE,RANDOM 93 mg/dL (74-109)
[2019-05-10 18:15] LABS: ALBUMIN 4.4 g/dL (4.0-5.0); BILIRUBIN,DIRECT 0.2 mg/dL (0-0.3); BILIRUBIN,TOTAL 1.2 mg/dL (0.2-1.0); TOTAL PROTEIN 6.4 g/dL (6.6-8.7)
[2019-05-10] MEDS ORDERED: POTASSIUM CHLORIDE 20 MEQ TABLET PO ONE (18:20)
== END 2019-05-10 18:34 | disposition home or self-care (01) ==
LOC: ER 15:47
DX: R60.0 Localized edema (principal); L10.9 Pemphigus, unspecified; E87.6 Hypokalemia; L30.9 Dermatitis, unspecified; I10 Essential (primary) hypertension; Z87.891 Personal history of nicotine dependence
CPT/HCPCS: 80048; 80076; 85025; 96374; 99284; J2930